=== PATIENT | female | born 1980 | race Caucasian/White ===

== ENCOUNTER 2018-06-03 00:02 | Emergency (ER) | payer MEDICAID ==
[~2018-06-03] VITALS: Ht 160 cm; Wt 59.0 kg
[~2018-06-03 00:02] MED LIST: [UNRECOGNIZED DRUG - CODE] PO
[2018-06-03] MEDS ORDERED: acetaminophen 325mg tablet PO ONE (04:55)
[2018-06-03] MEDS ORDERED: bacitracin 15gm ointment TP ONE (06:20)
[2018-06-03] MEDS ORDERED: BUPIVAcaine/PF 2.5 mg/ml (0.25%) 30ml vial IJ ONE (06:20)
[2018-06-03 07:43] VITALS: BP 106/66
== END 2018-06-03 08:48 | disposition home or self-care (01) ==
LOC: ER 00:02
DX: L60.0 Ingrowing nail (principal); G43.909 Migraine, unspecified, not intractable, without status migrainosus; I10 Essential (primary) hypertension; M19.90 Unspecified osteoarthritis, unspecified site; F11.90 Opioid use, unspecified, uncomplicated; Z98.890 Other specified postprocedural states; Z90.710 Acquired absence of both cervix and uterus; Z88.1 Allergy status to other antibiotic agents
CPT/HCPCS: 11730; 99283; J3490

== ENCOUNTER 2019-11-10 12:03 | Emergency (ER) | payer MEDICAID ==
[~2019-11-10] VITALS: Ht 160 cm; Wt 66.0 kg
[2019-11-10 12:10] VITALS: BP 127/58
[2019-11-10] MEDS ORDERED: ketorolac trometh inj. 60 MG/2 ML VIAL IM ONE (13:20)
[2019-11-10] MEDS ORDERED: acetaminophen 325mg tablet PO ONE (13:20)
== END 2019-11-10 13:38 | disposition home or self-care (01) ==
LOC: ER 12:05
DX: S92.511A Displaced fracture of proximal phalanx of right lesser toe(s), initial encounter for closed fracture (principal); G43.909 Migraine, unspecified, not intractable, without status migrainosus; I10 Essential (primary) hypertension; M19.90 Unspecified osteoarthritis, unspecified site; F11.90 Opioid use, unspecified, uncomplicated; Z90.710 Acquired absence of both cervix and uterus; Z98.890 Other specified postprocedural states; Z88.1 Allergy status to other antibiotic agents; W22.03XA Walked into furniture, initial encounter; Y93.89 Activity, other specified; Y92.89 Other specified places as the place of occurrence of the external cause; Y99.9 Unspecified external cause status
CPT/HCPCS: 73630; 96372; 99283; J1885

== ENCOUNTER 2020-10-02 19:19 | Emergency (ER) | payer MEDICAID ==
[~2020-10-02] VITALS: Ht 160 cm; Wt 67.5 kg
[~2020-10-02 19:19] MED LIST changes: +CLON-418 PO; -[UNRECOGNIZED DRUG - CODE] PO
[2020-10-02] MEDS ORDERED: ONDA4TAB6 PO (19:48)
[2020-10-02] MEDS ORDERED: HYDR-4383 PO (19:48)
[2020-10-02] MEDS ORDERED: HYDROcodone/acetaminophen 10/325mg tab PO ONE (19:50)
[2020-10-02] MEDS ORDERED: ondansetron 4mg rapidly disintigrating tab PO ONE (19:50)
[2020-10-02 20:02] VITALS: BP 151/95
== END 2020-10-02 20:03 | disposition home or self-care (01) ==
LOC: ER 19:19
DX: K02.9 Dental caries, unspecified (principal); K08.89 Other specified disorders of teeth and supporting structures; I10 Essential (primary) hypertension; G43.909 Migraine, unspecified, not intractable, without status migrainosus; Z87.448 Personal history of other diseases of urinary system; F41.9 Anxiety disorder, unspecified; Z88.1 Allergy status to other antibiotic agents; Z88.5 Allergy status to narcotic agent
CPT/HCPCS: 99283

== ENCOUNTER → 2021-07-05 | Emergency (ER) | payer MEDICAID ==
[~2021-07-05] VITALS: Ht 160 cm; Wt 65.9 kg
[~2021-07-05] MED LIST changes: +HYDR-4383 PO; +ONDA4TAB6 PO
[2021-07-05 03:26] VITALS: BP 120/83
[2021-07-05 04:35] LABS: BASOPHILS % (AUTO) 0.2 % (0-1); EOSINOPHILS # (AUTO) 0.1 X10'3 (0-0.9); EOSINOPHILS % (AUTO) 1.2 % (0-6); HEMATOCRIT 39.1 % (35.0-45.0); LYMPHOCYTES # (AUTO) 1.8 X10'3 (1.1-4.8); LYMPHOCYTES % (AUTO) 21.2 % (21-51); MEAN CORPUSCULAR HEMOGLOBIN 29.5 PG (27.0-31.0); MEAN CORPUSCULAR HGB CONC 33.3 g/dL (33.0-36.5); MEAN CORPUSCULAR VOLUME 88.6 FL (78-98); MEAN PLATELET VOLUME 8.9 FL (7.4-10.4); MONOCYTES # (AUTO) 0.6 X10'3 (0-0.9); MONOCYTES % (AUTO) 6.8 % (2-12); NEUTROPHILS # (AUTO) 5.9 X10'3 (1.8-7.7); NEUTROPHILS % (AUTO) 70.6 % (42-75); PLATELET COUNT 259 X10'3 (140-440); RED BLOOD COUNT 4.41 X10'6 (4.20-5.60); RED CELL DISTRIBUTION WIDTH 13.2 % (11.5-14.5); WHITE BLOOD COUNT 8.4 X10'3 (4.5-11.0)
[2021-07-05 04:46] LABS: ALANINE AMINOTRANSFERASE 21 U/L (12-78); ALBUMIN 3.5 G/DL (3.4-5.0); ALBUMIN/GLOBULIN RATIO 0.9 (1.1-1.5); ALKALINE PHOSPHATASE 68 IU/L (46-116); ANION GAP 5 (8-16); ASPARTATE AMINO TRANSFERASE 18 U/L (10-37); BILIRUBIN,TOTAL 0.2 MG/DL (0.1-1.0); BLOOD UREA NITROGEN 12 MG/DL (7-18); BUN/CREATININE RATIO 16.7 (6.6-38.0); CHLORIDE 103 MMOL/L (99-107); CREATININE 0.72 MG/DL (0.40-0.90); GLUCOSE 90 MG/DL (70-104); POTASSIUM 3.5 MMOL/L (3.5-5.1); SODIUM 140 MMOL/L (135-145); TOTAL PROTEIN 7.3 G/DL (6.4-8.2); eGFR 90 ML/MIN
== END | disposition home or self-care (01) ==
LOC: ER 03:17
DX: K20.80 Other esophagitis without bleeding (principal); G43.909 Migraine, unspecified, not intractable, without status migrainosus; I10 Essential (primary) hypertension; F11.90 Opioid use, unspecified, uncomplicated; M19.90 Unspecified osteoarthritis, unspecified site; Z87.440 Personal history of urinary (tract) infections; Z87.441 Personal history of nephrotic syndrome; Z90.710 Acquired absence of both cervix and uterus; Z72.89 Other problems related to lifestyle; Z88.1 Allergy status to other antibiotic agents; Z79.899 Other long term (current) drug therapy
CPT/HCPCS: 36415; 71045; 80053; 83880; 84484; 85025; 93005; 99285

== ENCOUNTER 2022-07-25 21:17 | Emergency (ER) | payer MEDICAID ==
[~2022-07-25] VITALS: Ht 160 cm; Wt 70.0 kg
[2022-07-25 21:21] VITALS: BP 135/94
[2022-07-25] MEDS ORDERED: diazepam 5mg tablet PO ONE (21:35)
[2022-07-25] MEDS ORDERED: oxyCODONE/APAP 10/325mg tablet PO ONE ×2 (21:35→23:00)
[2022-07-25] MEDS ORDERED: ketorolac trometh. 30mg/ml inj. IM ONE (21:40)
[2022-07-25] MEDS ORDERED: normal saline 1000ML IV soln IVB ONE (22:30)
[2022-07-25] MEDS ORDERED: fentaNYL/PF 50MCG/1 ML 2ML syringe IV ONE (22:30)
[2022-07-25] MEDS ORDERED: ondansetron/PF 4mg/2ml inj IV ONE (22:30)
[2022-07-25] MEDS ORDERED: ORPH100T2 PO (22:57)
[2022-07-25] MEDS ORDERED: LIDO700A32 TOP (22:57)
[2022-07-25] MEDS ORDERED: KETO10TA2 PO (22:57)
[2022-07-25] MEDS ORDERED: OXYC-145 PO (22:57)
== END 2022-07-25 23:40 | disposition home or self-care (01) ==
LOC: ER 21:18
DX: S22.080A Wedge compression fracture of T11-T12 vertebra, initial encounter for closed fracture (principal); M54.50 Low back pain, unspecified; R11.0 Nausea; G43.909 Migraine, unspecified, not intractable, without status migrainosus; I10 Essential (primary) hypertension; M19.90 Unspecified osteoarthritis, unspecified site; F41.9 Anxiety disorder, unspecified; F11.90 Opioid use, unspecified, uncomplicated; Z87.442 Personal history of urinary calculi; Z87.440 Personal history of urinary (tract) infections; Z90.710 Acquired absence of both cervix and uterus; Z98.890 Other specified postprocedural states; Z72.89 Other problems related to lifestyle; Z88.1 Allergy status to other antibiotic agents; Z79.899 Other long term (current) drug therapy; V80.010A Animal-rider injured by fall from or being thrown from horse in noncollision accident, initial encounter; Y93.52 Activity, horseback riding; Y92.89 Other specified places as the place of occurrence of the external cause; Y99.8 Other external cause status
CPT/HCPCS: 72128; 72131; 96372; 99284; J1885

== ENCOUNTER 2024-07-11 09:24 | Emergency (ER) | payer OTHER ==
[~2024-07-11] VITALS: Ht 160 cm; Wt 65.0 kg
[~2024-07-11 09:24] MED LIST changes: +KETO10TA2 PO; +LIDO700A32 TOP; +ORPH100T4 PO; +OXYC-145 PO
[2024-07-11] MEDS ORDERED: iohexol 300mg/ml 100ml inj. ONE (10:13)
[2024-07-11] MEDS: morphine 4 MG/ML inj SYRINge IV ONE (10:34)
[2024-07-11] MEDS: ondansetron/PF 4mg/2ml inj IV ONE (10:34)
[2024-07-11 11:02] LABS: BASOPHILS % (AUTO) 0.3 % (0-1); EOSINOPHILS # (AUTO) 0.1 X10'3 (0-0.9); EOSINOPHILS % (AUTO) 1.2 % (0-6); HEMATOCRIT 37.2 % (35.0-45.0); HEMOGLOBIN 12.4 g/dl (12.0-16.0); LYMPHOCYTES # (AUTO) 1.2 X10'3 (1.1-4.8); LYMPHOCYTES % (AUTO) 15.9 % (21-51); MEAN CORPUSCULAR HEMOGLOBIN 29.1 PG (27.0-31.0); MEAN CORPUSCULAR HGB CONC 33.3 g/dL (33.0-36.5); MEAN CORPUSCULAR VOLUME 87.2 FL (78-98); MEAN PLATELET VOLUME 8.6 FL (7.4-10.4); MONOCYTES # (AUTO) 0.6 X10'3 (0-0.9); MONOCYTES % (AUTO) 7.6 % (2-12); NEUTROPHILS # (AUTO) 5.5 X10'3 (1.8-7.7); PLATELET COUNT 237 X10'3 (140-440); RED BLOOD COUNT 4.27 X10'6 (4.20-5.60); RED CELL DISTRIBUTION WIDTH 13.1 % (11.5-14.5); WHITE BLOOD COUNT 7.3 X10'3 (4.5-11.0)
[2024-07-11 11:11] LABS: PROTHROMBIN TIME 10.7 SECONDS (9.0-12.0)
[2024-07-11 11:17] LABS: ALANINE AMINOTRANSFERASE 23 U/L (12-78); ALBUMIN 3.3 G/DL (3.4-5.0); ALBUMIN/GLOBULIN RATIO 0.9 (1.1-1.5); ANION GAP 5 (8-16); ASPARTATE AMINO TRANSFERASE 27 U/L (10-37); BILIRUBIN,TOTAL 0.6 MG/DL (0.1-1.0); BLOOD UREA NITROGEN 18 MG/DL (7-18); BUN/CREATININE RATIO 22.5 (10.0-20.0); CALCIUM 9.1 MG/DL (8.5-10.1); CHLORIDE 95 MMOL/L (99-107); GLUCOSE 92 MG/DL (70-104); POTASSIUM 3.1 MMOL/L (3.5-5.1); SODIUM 130 MMOL/L (135-145); TOTAL CARBON DIOXIDE 30.1 MMOL/L (24-32); TOTAL PROTEIN 7.1 G/DL (6.4-8.2); eCRCL 75 ML/MIN; eGFR 78 ML/MIN
[2024-07-11 11:18] LABS: ALKALINE PHOSPHATASE 59 IU/L (46-116)
[2024-07-11] MEDS ORDERED: HYDR-3972 PO (11:24)
[2024-07-11] MEDS ORDERED: METH-798 PO (11:24)
[2024-07-11] MEDS: HYDROmorphone 1 mg/ml syringe IV ONE (11:24)
[2024-07-11 11:25] LABS: BETA HCG,QUANTITATIVE < 1.0 mIU/ml
[2024-07-11 12:29] VITALS: BP 112/75; PULSE 85; RESP 16; TEMP 97.8; O2SAT 99
== END 2024-07-11 12:15 | disposition home or self-care (01) ==
LOC: ER 09:24
DX: S42.002A Fracture of unspecified part of left clavicle, initial encounter for closed fracture (principal); S20.212A Contusion of left front wall of thorax, initial encounter; S30.1XXA Contusion of abdominal wall, initial encounter; G43.909 Migraine, unspecified, not intractable, without status migrainosus; I10 Essential (primary) hypertension; M19.90 Unspecified osteoarthritis, unspecified site; F41.9 Anxiety disorder, unspecified; I25.10 Atherosclerotic heart disease of native coronary artery without angina pectoris; F11.90 Opioid use, unspecified, uncomplicated; Z88.1 Allergy status to other antibiotic agents; Z79.899 Other long term (current) drug therapy; Z90.710 Acquired absence of both cervix and uterus; Z72.89 Other problems related to lifestyle; Z87.442 Personal history of urinary calculi; Z98.890 Other specified postprocedural states; V89.2XXA Person injured in unspecified motor-vehicle accident, traffic, initial encounter; Y93.89 Activity, other specified; Y92.89 Other specified places as the place of occurrence of the external cause; Y99.8 Other external cause status
CPT/HCPCS: 36415; 71260; 74177; 80053; 84702; 85025; 85610; 93005; 96374; 96375; 99285; J1170; J2270; J2405; J7030; Q9967; A4565